=== PATIENT | male | born 1950 | race Caucasian/White ===

== ENCOUNTER 2022-11-30 09:53 | Day surgery (SDC) | payer MEDICARE ==
[2022-11-30] MEDS ORDERED: Depo-Medrol 40 MG/ML IM ONE (09:54)
[2022-11-30] MEDS ORDERED: Sodium Chloride 0.9(Preservative Free) 10 ML IJ ONE (09:54)
[2022-11-30] MEDS ORDERED: DIPRIVAN 200 MG/20 ML IV ONE ×2 (11:14→11:32)
--- NOTE | 2022-11-30 14:32 | XRAY ---
Indication: Right L4-S1 transforaminal CYNTHIA. Intraoperative fluoroscopy provided for 47 seconds. 5 digital spot images submitted for interpretation demonstrates posterior needle tips projecting over the expected right L4 and L5 nerve roots. Small amount of contrast injected for needle tip placement. Correlate with intraoperative findings/report.
[2022-11-30] MEDS ORDERED: Lactated Ringers 1,000 ML IV ONE (14:51)
--- NOTE | 2022-11-30 14:58 | XRAY ---
47 seconds of fluoroscopy was used in surgery for a right L4-S1 transforaminal CYNTHIA.
== END 2022-11-30 12:05 | disposition home or self-care (01) ==
LOC: SDC-PAIN 09:53
PROVIDERS: ATTEND Psychiatry & Neurology Pain Medicine
DX: M54.16 Radiculopathy, lumbar region (principal)
CPT/HCPCS: 64483; 64484; 72100; 77003; J1030; J2704; Q9966

== ENCOUNTER → 2023-01-25 | Day surgery (SDC) | payer MEDICARE ==
[~2023-01-25] MED LIST: DIPRIVAN 200 MG/20 ML IV ONE; Decadron 4 MG INJ IV ONE; Lactated Ringers 1,000 ML IV ONE; SUBLIMAZE 100 MCG/2 ML ONE; Sodium Chloride 0.9(Preservative Free) 10 ML IJ ONE; XYLOCAINE-MPF 1% 5ML SDV IJ ONE
--- NOTE | 2023-01-25 16:42 | XRAY ---
Indication: Right L3-L5 transforaminal CYNTHIA. Intraoperative fluoroscopy provided for 24 seconds. 4 digital spot images submitted for interpretation demonstrates posterior needle tips projecting over the expected right L3 and L4 nerve roots. Small amount of contrast injected for needle tip placement. Correlate with intraoperative findings/report.
--- NOTE | 2023-01-25 16:42 | XRAY ---
Indication: Right piriformis injection. Intraoperative fluoroscopy provided for 9 seconds. Single digital spot images submitted for interpretation demonstrates posterior needle tip projecting over right piriformis. Small amount of contrast injected for needle tip placement. Correlate with intraoperative findings/report.
--- NOTE | 2023-01-25 16:56 | XRAY ---
9 seconds of fluoroscopy was used in surgery for a right piriformis injection.
--- NOTE | 2023-01-25 16:57 | XRAY ---
24 seconds of fluoroscopy was used in surgery for a right L3-L5 transforaminal CYNTHIA.
== END ==
LOC: SDC-PAIN 14:00 → SDC 14:00
PROVIDERS: ATTEND Psychiatry & Neurology Pain Medicine
DX: M54.16 Radiculopathy, lumbar region (principal); M79.18 Myalgia, other site
CPT/HCPCS: 20552; 64483; 64484; 72100; 72170; 77002; 77003; 99100; J1100; J2704; J3010; Q9966